=== PATIENT | male | born 1950 | race Caucasian/White ===

== ENCOUNTER 2019-05-25 00:53 | Inpatient (IN) | payer BC ==
[2019-05-25 01:39] LABS: #Basophils 0.1 thou/uL (0.0-0.2); #Eosinphils 0.1 thou/uL (0.0-0.7); #Lymphocytes 1.4 thou/uL (1.20-3.40); #Monocytes 1.1 thou/uL (0.11-0.59); #Neutrophils 8.1 thou/uL (1.40-6.50); %Basophils 0.6 % (0.0-1.0); %Eosinophils 0.6 % (0.0-10.0); %Lymphocytes 13.2 % (21.0-51.0); %Monocytes 10.1 % (0.0-10.0); %Neutrophils 75.5 % (42.0-75.0); Hemoglobin 14.6 g/dL (14.0-18.0); Mean Corpuscular HGB CONC 35.3 g/dL (32.0-36.0); Mean Corpuscular Hemoglobin 33.4 pg (27.0-31.0); Mean Corpuscular Volume 94.5 fL (78.0-98.0); Mean Platelet Volume 8.6 fL (7.4-10.4); Platelet Count 197 thou/uL (130-400); RBC Distribution Width 11.7 % (11.5-14.5); Red Blood Cell (RBC) Count 4.37 mill/uL (4.70-6.10); White Blood Cell (WBC) Count 10.7 thou/uL (4.8-10.8)
[2019-05-25 02:03] LABS: ALT (SGPT) 169 U/L (8-55); AST (SGOT) 172 U/L (5-34); Albumin 4.3 g/dL (3.4-4.8); Alcohol Less than 10 mg/dL (Less than 10); Alkaline Phosphatase 69 U/L (40-150); Anion Gap 14 mmol/L (10-20); BUN (Urea Nitrogen) 22 mg/dL (8.4-25.7); Bilirubin, Total 1.1 mg/dL (0.2-1.2); CK (CPK) 398 U/L (30-200); Calc. Creatinine Clearance 0 mL/min (70-130); Calcium 9.2 mg/dL (7.8-10.44); Carbon Dioxide 21 mmol/L (23-31); Chloride 106 mmol/L (98-107); Estimated GFR-MDRD 73; Globulin 2.5 g/dL (2.4-3.5); Glucose 192 mg/dL (80-115); Potassium 3.4 mmol/L (3.5-5.1); Protein, Total 6.8 g/dL (5.8-8.1); Sodium 138 mmol/L (136-145)
[2019-05-25 02:24] LABS: CKMB 6.3 ng/mL (0-6.6)
[2019-05-25 04:47] LABS: Troponin I 0.135 ng/mL (< 0.028)
[2019-05-25] MEDS ORDERED: Aspirin 325 MG TAB ONE (05:02)
[2019-05-25 07:13] LABS: Troponin I 0.259 ng/mL (< 0.028)
[2019-05-25 07:31] VITALS: BMI 34.9
--- NOTE | 2019-05-25 08:03 | RAD ---
EXAM: Portable chest PROVIDED CLINICAL HISTORY: Shortness of breath COMPARISON: None FINDINGS: Cardiac and mediastinal silhouette is within normal limits. No focal consolidation, pleural fluid or pneumothorax evident. IMPRESSION: No evidence for an acute cardiopulmonary process.
[2019-05-25 10:28] LABS: Troponin I 0.213 ng/mL (< 0.028)
[2019-05-25] MEDS ORDERED: Ondansetron ODT 4 MG TAB PO PRN (10:57)
[2019-05-25] MEDS ORDERED: Ondansetron PF 4 MG/2 ML Vial IVP PRN (10:57)
[2019-05-25] MEDS ORDERED: Dextrose 5% in Water 1,000 ML IV PRN (10:57)
[2019-05-25] MEDS ORDERED: HumaLOG 300 UNITS/3 ML VIAL SC PRN ×2 (10:57)
[2019-05-25] MEDS ORDERED: Dextrose 50% Abboject 50 ML SYRINGE SLOW IVP PRN (10:57)
[2019-05-25] MEDS ORDERED: Furosemide 20 MG TAB PO SCH (11:00)
[2019-05-25 12:39] LABS: #Eosinphils 0.1 thou/uL (0.0-0.7); #Lymphocytes 1.7 thou/uL (1.20-3.40); #Monocytes 0.8 thou/uL (0.11-0.59); #Neutrophils 4.3 thou/uL (1.40-6.50); %Basophils 0.4 % (0.0-1.0); %Eosinophils 1.9 % (0.0-10.0); %Lymphocytes 24.6 % (21.0-51.0); %Monocytes 11.2 % (0.0-10.0); %Neutrophils 61.9 % (42.0-75.0); Hemoglobin 13.8 g/dL (14.0-18.0); Mean Corpuscular HGB CONC 35.3 g/dL (32.0-36.0); Mean Corpuscular Hemoglobin 33.4 pg (27.0-31.0); Mean Corpuscular Volume 94.6 fL (78.0-98.0); Mean Platelet Volume 8.5 fL (7.4-10.4); Platelet Count 187 thou/uL (130-400); RBC Distribution Width 11.7 % (11.5-14.5); Red Blood Cell (RBC) Count 4.12 mill/uL (4.70-6.10)
[2019-05-25 12:57] LABS: ALT (SGPT) 117 U/L (8-55); AST (SGOT) 76 U/L (5-34); Alkaline Phosphatase 59 U/L (40-150); Anion Gap 10 mmol/L (10-20); BUN (Urea Nitrogen) 15 mg/dL (8.4-25.7); Bilirubin, Total 1.4 mg/dL (0.2-1.2); Calc. Creatinine Clearance 156 mL/min (70-130); Calcium 8.6 mg/dL (7.8-10.44); Carbon Dioxide 25 mmol/L (23-31); Cardiac Risk 4.5 (Less than 4.5); Chloride 107 mmol/L (98-107); Cholesterol 179 mg/dl (< 200 Desired); Estimated GFR-MDRD Greater than 90; Globulin 2.1 g/dL (2.4-3.5); Glucose 148 mg/dL (80-115); HDL Cholesterol 40 mg/dL (>60 Neg Risk); LDL Cholesterol, Calculated 123 mg/dL; Magnesium 1.7 mg/dL (1.6-2.6); Potassium 3.5 mmol/L (3.5-5.1); Protein, Total 6.1 g/dL (5.8-8.1); Sodium 138 mmol/L (136-145); Triglycerides 79 mg/dL (Less than 150)
[2019-05-25 13:25] LABS: CKMB 5.9 ng/mL (0-6.6)
--- NOTE | 2019-05-25 15:56 | HP ---
PRIMARY CARE PHYSICIAN: Dr. Macias. CHIEF COMPLAINT: Shortness of breath, lightheadedness, and diaphoresis. HISTORY OF PRESENT ILLNESS: Mr. Cook is a 69-year-old male with past medical history of hypertension, hyperlipidemia, and diabetes mellitus type 2, who had presented to the ED late last night after he had a short episode of shortness of breath, diaphoresis, and feeling lightheaded when he was at the [facility]. He states that he was outside drinking beer all day and had stated that he drank about 7 beers prior to the symptoms starting. Once he arrived to the ED, it was found that the patient be hypertensive and slightly tachycardic, D-dimer was found to be 0.52; however, there was a lower suspicion for PE at that time. His troponin was found to be elevated at 0.135, which had trended up to 0.259 and then back down to 0.177. His CK-MB was found to be normal at 5.9, and his liver enzymes elevated at 172 AST and 169 ALT, which these two trended down to 76 and 117 respectively. The patient was thought to be quite dehydrated. Therefore, he was treated with IV fluid hydration and was given aspirin in the ED. He states that since then his symptoms resolved, and he denies any fever, chills, any headache, blurred vision, dizziness, chest pain, palpitations, shortness of breath, abdominal pain, nausea, or vomiting. He had then stayed in a normal sinus rhythm on the monitor. REVIEW OF SYSTEMS: All other systems reviewed and found to be negative unless mentioned in the HPI. PAST MEDICAL HISTORY: Hypertension, hyperlipidemia, and diabetes mellitus type 2. PAST SURGICAL HISTORY: Right knee surgery. PSYCHIATRIC HISTORY: None. SOCIAL HISTORY: The patient drinks socially, which is quite rarely and denies any tobacco or illicit drug use. KNOWN ALLERGIES: No known drug allergies. CURRENT HOME MEDICATIONS: 1. Metformin 1000 mg p.o. b.i.d. 2. Pravastatin 20 mg oral q.p.m. 3. Januvia 100 mg p.o. daily. 4. CoQ10 30 mg p.o. daily. 5. Furosemide 20 mg oral every 48 hours. 6. Hydrochlorothiazide 25 mg p.o. daily. 7. Lisinopril 20 mg oral daily. 8. Metoprolol 100 mg oral daily. PHYSICAL EXAMINATION: VITAL SIGNS: Blood pressure 154/86, pulse 79, respirations 20, temperature 97.5, and O2 saturation 95% on room air. GENERAL: The patient is awake, alert, and oriented x3. He is currently lying comfortably in bed and in no acute distress. His family is at bedside. HEENT: Atraumatic and normocephalic. Pupils are round and reactive to light. Extraocular muscles intact. Moist mucous membranes noted. NECK: Soft and supple. Trachea midline. CARDIOVASCULAR: Positive S1 and S2. Regular rate and rhythm. No murmur auscultated. RESPIRATORY: Clear to auscultation bilaterally. No wheezes, rales, or rhonchi. ABDOMEN: Soft, nontender. Bowel sounds present. EXTREMITIES: Moves all extremities equal. Pedal and radial pulses 2+ bilaterally. No edema noted. NEUROLOGIC: Cranial nerves 2 through 12 grossly intact. No focal deficits noted. Speech intact and normal. Gait not assessed. SKIN: Warm, dry, and intact. No rashes. No ulceration noted. PSYCHIATRIC: Good mood and affect. LABORATORY DATA: WBC 7.0, RBC 4.12, hemoglobin 13.8, and platelets 187. Sodium 138, potassium 3.5, anion gap 10, BUN 15, creatinine 0.75, estimated GFR greater than 90, glucose 148, AST trended down to 76, ALT trended down to 117. Troponin 0.135, 0.259, 0.213, and 0.137. BNP 38.8, triglyceride 79, cholesterol 179, LDL 123, HDL 40. TSH 0.6365. Plasma alcohol less than 10. DIAGNOSTIC IMAGING: Portable chest x-ray showed no evidence of acute cardiopulmonary process. ASSESSMENT AND PLAN: 1. Myocardial infarction, type 2. The patient's cardiac enzymes were found to be in an indeterminate range and trended up to 0.259; however, it is currently trending down to 0.177. Consult to Dr. Garcia was placed, and an echocardiogram was ordered to assess his EF. The patient is currently asymptomatic at this time. He will be monitored on telemetry for now, and blood pressure and other vital signs will be monitored, and we will await for further recommendations per Cardiology. 2. Hypertension. Continue home regimen. Monitor blood pressure and other vital signs closely. 3. Hyperlipidemia. Continue home statin. 4. Diabetes mellitus, type 2. Continue with the insulin sliding scale with frequent Accu-Cheks. 5. Transaminitis. This is improved, status post IV fluid hydration. 6. Deep venous thrombosis and gastrointestinal prophylaxis. 7. Code status, full code. DISPOSITION: Pending further workup and clinical findings. Job ID: [id number]
[2019-05-25] MEDS ORDERED: Communication Order-Pharmacy FS SCH (18:30)
[2019-05-25] MEDS ORDERED: Sodium Chloride 0.9% (PF) 10 ML VIAL FS PRN (21:07)
[2019-05-25] MEDS ORDERED: Calcium Carbonate 500 MG ChewTAB PO PRN (21:08)
[2019-05-25] MEDS ORDERED: Pantoprazole 40 MG VIAL IVP SCH (21:15)
[2019-05-25] MEDS ORDERED: Calcium Carbonate 500 MG ChewTAB PO SCH (21:15)
[2019-05-25] MEDS: Famotidine 20 MG TAB PO SCH (22:04)
--- NOTE | 2019-05-25 22:08 | CON ---
DATE OF CONSULTATION: 05/25/2019 INDICATION FOR CONSULTATION: A 69-year-old patient with a history of nonobstructive coronary artery disease by cardiac catheterization in 2016 was out yesterday [place] a [place] in [place] believe, he had about 6 or 7 beers to drink, it was hot. He sat down to have something to eat and then he felt very lightheaded and dizzy and became very diaphoretic. He denied any chest pain, but does have a history of diabetes. He takes several medications for his diabetes. Since he did not feel quite right he presented to the emergency room at which time his enzymes were noted to be slightly elevated. His troponin I was 0.259. It is now continuing to trend downwards, now at 0.177 and he has had no chest pain. He has been doing much better, but due to the fact that he does have a history of coronary artery disease in the past, which was noted by cardiac catheterization by Dr. Dupont in 2016 at which time he was noted to have some mild calcifications in the left main with some plaque, but no obstructive stenosis. The left anterior descending artery had a 30% mid stenosis with some plaque and the left circumflex had no significant flow limiting disease. Right coronary artery was dominant vessel and had about a 30% proximal stenosis in the mid segment. His ejection fraction at that time was about 50% to 55%. He underwent an echocardiogram today and ejection fraction is now about 40% to 45% The inferior wall appears to be hypokinetic. PAST MEDICAL HISTORY: Significant for hypertension, dyslipidemia, diabetes type 2. He has had right knee surgery. He had a prostatectomy due to prostate cancer. He has had a cardiac catheterization, was found to have mild coronary artery disease. SOCIAL HISTORY: He drinks socially, but drinks as many as 6 or 7 beers a day. Obviously, he stopped smoking about 20 years ago. He is . He has children, who are alive and well. ALLERGIES: HE HAS NO KNOWN DRUG ALLERGIES. MEDICATIONS: Include metoprolol 100 mg b.i.d., lisinopril 20 mg a day, hydrochlorothiazide 25 mg a day, Lasix 20 mg every other day. He also takes CoQ10 as well as Januvia, pravastatin 20 mg a day and metformin 1000 mg b.i.d. REVIEW OF SYSTEMS: A 12-point review of systems unremarkable except for what was noted in the history of present illness. PHYSICAL EXAMINATION: GENERAL: Reveals a well-developed, well-nourished, obese gentleman who is in no acute distress at this time. He is alert. He is oriented. VITAL SIGNS: His vital signs show a blood pressure of 154/86, heart rate is 79 and regular, respiratory rate is 20. He is afebrile, O2 saturation 95%. HEENT: Shows head to be normocephalic and atraumatic. NECK: Carotid pulses are present. There were no bruits. CHEST: Clear to auscultation without rales, rhonchi, or wheezing. CARDIOVASCULAR: Reveals a regular rate and rhythm. I do not hear any significant murmurs, heaves, thrills, bruits, or rubs. ABDOMEN: Morbid obesity. Positive bowel sounds are present. No organomegaly or masses are noted. No tenderness. EXTREMITIES: Show no clubbing, cyanosis, or edema. Pedal pulses are present. NEUROLOGIC: He appears to be fully intact with normal strength and normal tone. SKIN: Warm and dry. DIAGNOSTIC STUDIES: EKG showed a normal sinus rhythm with no acute changes. He did have occasional PVCs, but no acute ST-segment changes were noted otherwise. LABORATORY DATA: Shows a sodium of 138, potassium was 3.5, BUN was 15 with a creatinine of 0.175, blood sugar was 148, and cardiac enzymes are as noted above. His hematology shows a WBC of 7.0, hemoglobin 13.8, hematocrit 38.9, and platelet count was 187,000. IMPRESSION: 1. Probable type 2 myocardial infarction with perhaps possibly demand ischemia associated with being in the heat and drinking alcohol, but the patient does have a history of mild coronary artery disease and diabetes and with his history of feeling lightheaded with diaphoresis, increased diaphoresis, more so than he would expect, then he most likely would best be benefitted by undergoing a cardiac catheterization to fully define his coronary anatomy. We will keep him n.p.o. and discuss his case with Dr. Dupont who most likely will proceed with cardiac catheterization tomorrow. 2. Hypertension. We will need to readjust his medications to ensure that his blood pressure remains stable. 3. Hypercholesterolemia. He will continue his medications. 4. Type 2 diabetes. His will be dealt with via the Primary Care Service. Job ID: [id number] [facility]
[2019-05-26 05:35] LABS: #Basophils 0.1 thou/uL (0.0-0.2); #Eosinphils 0.2 thou/uL (0.0-0.7); #Monocytes 0.8 thou/uL (0.11-0.59); #Neutrophils 3.3 thou/uL (1.40-6.50); %Basophils 1.1 % (0.0-1.0); %Eosinophils 2.9 % (0.0-10.0); %Lymphocytes 31.5 % (21.0-51.0); %Monocytes 12.6 % (0.0-10.0); Hemoglobin 14.2 g/dL (14.0-18.0); Mean Corpuscular HGB CONC 34.7 g/dL (32.0-36.0); Mean Corpuscular Hemoglobin 32.7 pg (27.0-31.0); Mean Corpuscular Volume 94.4 fL (78.0-98.0); Mean Platelet Volume 8.9 fL (7.4-10.4); Platelet Count 194 thou/uL (130-400); RBC Distribution Width 11.8 % (11.5-14.5); Red Blood Cell (RBC) Count 4.34 mill/uL (4.70-6.10); White Blood Cell (WBC) Count 6.3 thou/uL (4.8-10.8)
[2019-05-26 05:52] LABS: Anion Gap 14 mmol/L (10-20); BUN (Urea Nitrogen) 10 mg/dL (8.4-25.7); Calc. Creatinine Clearance 159 mL/min (70-130); Calcium 8.5 mg/dL (7.8-10.44); Carbon Dioxide 24 mmol/L (23-31); Chloride 106 mmol/L (98-107); Estimated GFR-MDRD Greater than 90; Glucose 140 mg/dL (80-115); Potassium 3.5 mmol/L (3.5-5.1); Sodium 140 mmol/L (136-145)
[2019-05-26] MEDS: Famotidine 20 MG TAB PO SCH ×2 (06:03→20:35)
[2019-05-26] MEDS: Lisinopril 20 MG TAB PO SCH (06:03)
[2019-05-26] MEDS ORDERED: Pantoprazole 40 MG VIAL IVP SCH (09:00)
[2019-05-26] MEDS ORDERED: Hydrochlorothiazide 25 MG TAB PO SCH (09:00)
[2019-05-26] MEDS ORDERED: Enoxaparin Sodium 40 MG/0.4 ML SYRINGE SC SCH (09:00)
--- NOTE | 2019-05-26 09:47 | PDOC.HOSPP ---
- Subjective Encounter Date: 05/26/19 Encounter Time: 09:43 Subjective: feels well now - Objective Vital Signs & Weight: Vital Signs (12 hours) Temp Pulse Resp BP BP Pulse Ox 05/26/19 07:09 97.8 F 72 15 158/95 H 94 L 05/26/19 06:03 132/91 H 05/26/19 04:48 97.9 F 74 16 169/98 H 96 05/25/19 23:37 76 149/82 H 05/25/19 22:01 98.4 F 72 20 159/87 H 94 L Weight Weight 248 lb 11.2 oz I&O: 05/25/19 05/26/19 05/27/19 06:59 06:59 06:59 Intake Total 400 Output Total 1440 Balance -1040 Result Diagrams: 05/26/19 04:25 05/26/19 04:25 Additional Labs: Accuchecks 05/26/19 05/25/19 05/25/19 05:35 20:48 16:35 POC Glucose 151 H 157 H 129 H Hospitalist ROS - Medication Medications: Active Medications Generic Name Dose Route Start Last Admin Trade Name Freq PRN Reason Stop Dose Admin Famotidine 20 mg 05/25/19 21:00 05/26/19 06:03 Pepcid PO 20 mg BID BEENA Administration Furosemide 20 mg 05/25/19 11:00 05/25/19 11:39 Lasix PO 20 mg Q48H BEENA Administration Hydrochlorothiazide 25 mg 05/26/19 09:00 05/26/19 06:03 Hydrochlorothiazide PO 25 mg QAM BEENA Administration Lisinopril 20 mg 05/26/19 09:00 05/26/19 06:03 Zestril PO 20 mg QAM BEENA Administration Metoprolol Succinate 100 mg 05/26/19 09:00 05/26/19 06:04 Toprol Xl PO 100 mg DAILY BEENA Administration - Exam Neck: no JVD Heart: RRR Respiratory: CTAB, no wheezes Gastrointestinal: soft, normal bowel sounds Extremities: no edema Hosp A/P (1) Myocardial infarction type 2 Code(s): I21.A1 - MYOCARDIAL INFARCTION TYPE 2 Status: Acute (2) HTN (hypertension) Code(s): I10 - ESSENTIAL (PRIMARY) HYPERTENSION Status: Chronic Qualifiers: Hypertension type: essential hypertension Qualified Code(s): I10 - Essential (primary) hypertension (3) DM type 2 (diabetes mellitus, type 2) Status: Acute Qualifiers: 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 no reversibile ischemia, LVEF about 45% GB US- cholelithiasis
--- NOTE | 2019-05-26 11:59 | ULT ---
RIGHT UPPER QUADRANT ULTRASOUND CLINICAL HISTORY: Elevated LFTs and right upper quadrant pain. COMPARISON: None FINDINGS: Liver:There is diffuse fatty infiltration. No focal masses identified. Bile ducts: No intrahepatic or extrahepatic biliary dilation.; common bile duct: 0.4cm. Gallbladder: There are small stones within the gallbladder. Floyd's sign:None Main portal vein:Patent with hepatopedal flow. Pancreas: Largely obscured. Right kidney: No pelvicalyceal dilatation. Right kidney measures 11.6 x 5.7 x 6.4 cm. Additional findings: None. IMPRESSION: 1. Fatty liver. 2. Cholelithiasis
--- NOTE | 2019-05-26 14:19 | NM ---
Radionucleotide stress and rest myocardial perfusion scan with CT attenuation correction and SPECT im aging Left ventricular wall motion evaluation and ejection fraction HISTORY: Chest pain. FINDINGS: Heterogeneous uptake of radiotracer throughout the left ventricular myocardium. Thinning of the inferior and lateral bowling. Small fixed lateral wall. No reversibility. QGS analysis of gated SPECT images shows no focal wall motion abnormalities. Diffuse hypokinesis. Eje ction fraction calculated at 46%. IMPRESSION: No evidence of ischemia. Area of scar at the inferior and lateral wall. Slightly depressed ejection fraction of 46% without focal wall motion abnormality.
[2019-05-26] MEDS ORDERED: Potassium Chloride 20 MEQ TAB PO SCH (17:00)
[2019-05-26] MEDS ORDERED: Communication Order-Pharmacy FS SCH (18:15)
[2019-05-26] MEDS ORDERED: Aspirin 81 mg Enteric Coated Tablet PO SCH (18:15)
--- NOTE | 2019-05-26 18:31 | PRG ---
DATE OF SERVICE: 05/26/2019 SUBJECTIVE: Mr. Cook is feeling fine. No complaints. No chest pain or pressure. OBJECTIVE: VITAL SIGNS: Blood pressure 135/85, pulse 72 and regular. LUNGS: Clear. CARDIAC: Normal S1. Normal S2. DIAGNOSTIC STUDIES: Stress test showed a fixed inferior defect with no ischemia, with some depressed left ventricular function. ASSESSMENT: 1. Status post slight increase in troponin level. I suspect this is related to dehydration and overheating. Peak troponin was 0.259. The patient had been on the heat, drank quite a bit of beer, and had a near syncopal episode, sounds like a dehydration. 2. Mild coronary artery disease, previous catheterization. 3. Hypercholesterolemia, not well controlled. 4. Stress test indicating fixed defect of the inferior wall, this could be diaphragmatic-attenuation artifact. PLAN: Proceed to cardiac catheterization tomorrow. Discussed risks. Discussed stroke, heart attack, iodine allergy, loss of blood supply to leg or kidney, stent thrombosis, stent restenosis. He understands and wishes to proceed. He is actually not allergic to aspirin. Aspirin caused some stomach irritation in the past. We will go ahead and start him on aspirin 81 mg a day [employer]. Job ID: [id number]
[2019-05-27] MEDS ORDERED: CEFAZOLIN 2 GM in Premix Bag 1 BAG IVPB SCH (03:45)
[2019-05-27 04:13] LABS: #Eosinphils 0.2 thou/uL (0.0-0.7); #Lymphocytes 2.4 thou/uL (1.20-3.40); #Neutrophils 3.5 thou/uL (1.40-6.50); %Basophils 0.3 % (0.0-1.0); %Eosinophils 2.8 % (0.0-10.0); %Lymphocytes 34.1 % (21.0-51.0); %Monocytes 13.7 % (0.0-10.0); %Neutrophils 49.1 % (42.0-75.0); Hemoglobin 14.9 g/dL (14.0-18.0); Mean Corpuscular HGB CONC 34.4 g/dL (32.0-36.0); Mean Corpuscular Hemoglobin 31.9 pg (27.0-31.0); Mean Corpuscular Volume 92.8 fL (78.0-98.0); Mean Platelet Volume 8.6 fL (7.4-10.4); Platelet Count 179 thou/uL (130-400); RBC Distribution Width 11.8 % (11.5-14.5); Red Blood Cell (RBC) Count 4.67 mill/uL (4.70-6.10)
[2019-05-27 04:29] LABS: ALT (SGPT) 86 U/L (8-55); AST (SGOT) 36 U/L (5-34); Albumin 4.1 g/dL (3.4-4.8); Alkaline Phosphatase 55 U/L (40-150); Anion Gap 12 mmol/L (10-20); BUN (Urea Nitrogen) 10 mg/dL (8.4-25.7); Bilirubin, Total 1.5 mg/dL (0.2-1.2); Calc. Creatinine Clearance 152 mL/min (70-130); Calcium 8.9 mg/dL (7.8-10.44); Carbon Dioxide 22 mmol/L (23-31); Chloride 106 mmol/L (98-107); Estimated GFR-MDRD Greater than 90; Globulin 2.7 g/dL (2.4-3.5); Glucose 149 mg/dL (80-115); Potassium 3.7 mmol/L (3.5-5.1); Protein, Total 6.8 g/dL (5.8-8.1); Sodium 136 mmol/L (136-145)
[2019-05-27] MEDS ORDERED: Sodium Chloride 0.9% 1,000 ML IV SCH (05:00)
[2019-05-27] MEDS: Famotidine 20 MG TAB PO SCH (05:13)
[2019-05-27] MEDS: Lisinopril 20 MG TAB PO SCH (05:15)
[2019-05-27] MEDS ORDERED: Diazepam 5 MG TAB PO SCH (06:00)
[2019-05-27] MEDS ORDERED: Midazolam HCl 2 mg/2 ml Vial ONE (07:47)
[2019-05-27] MEDS ORDERED: Fentanyl 100 MCG/2 ML VIAL ONE (07:47)
[2019-05-27] MEDS ORDERED: Metoprolol Tartrate 5 MG/5 ML VIAL ONE (08:15)
[2019-05-27] MEDS ORDERED: Acetaminophen/Codeine 30-300mg Tablet PO PRN (08:41)
[2019-05-27] MEDS ORDERED: Sodium Chloride 0.9% 200 ML IV PRN (08:41)
[2019-05-27] MEDS ORDERED: Nitroglycerin 0.4 MG TAB (25 Tab Bottle) SL PRN (08:41)
[2019-05-27] MEDS ORDERED: Iopamidol 370 76% 100 ML VIAL ONE (08:44)
[2019-05-27] MEDS ORDERED: Aspirin 81 mg Enteric Coated Tablet PO SCH (09:00)
--- NOTE | 2019-05-27 13:07 | PDOC.HOSPP ---
- Subjective Encounter Date: 05/27/19 Encounter Time: 13:05 Subjective: no chest pain, sob - Objective Vital Signs & Weight: Vital Signs (12 hours) Temp Pulse Resp BP BP Pulse Ox 05/27/19 11:05 97.9 F 58 L 18 149/75 H 94 L 05/27/19 08:50 97.9 F 59 L 14 138/80 94 L 05/27/19 07:00 98.0 F 68 16 139/82 97 05/27/19 05:15 134/85 05/27/19 04:00 97.4 F L 63 20 134/85 96 Weight Weight 248 lb 11.2 oz I&O: 05/26/19 05/27/19 05/28/19 06:59 06:59 06:59 Intake Total 400 1020 Output Total 1440 1700 Balance -1040 -680 Result Diagrams: 05/27/19 04:01 05/27/19 04:01 Additional Labs: Accuchecks 05/27/19 05/27/19 05/26/19 11:16 05:42 20:28 POC Glucose 147 H 182 H 178 H 05/26/19 16:30 POC Glucose 165 H Hospitalist ROS - Medication Medications: Active Medications Generic Name Dose Route Start Last Admin Trade Name Freq PRN Reason Stop Dose Admin Aspirin 81 mg 05/27/19 09:00 05/27/19 05:12 Ecotrin PO 81 mg DAILY BEENA Administration Famotidine 20 mg 05/25/19 21:00 05/27/19 05:13 Pepcid PO 20 mg BID BEENA Administration Lisinopril 20 mg 05/26/19 09:00 05/27/19 05:15 Zestril PO 20 mg QAM BEENA Administration Metoprolol Succinate 100 mg 05/26/19 09:00 05/27/19 05:13 Toprol Xl PO 100 mg DAILY BEENA Administration - Exam General Appearance: awake alert Neck: no JVD Heart: RRR, no murmur Respiratory: CTAB Gastrointestinal: soft, non-tender, normal bowel sounds Extremities: no edema Hosp A/P (1) Myocardial infarction type 2 Code(s): I21.A1 - MYOCARDIAL INFARCTION TYPE 2 Status: Acute (2) HTN (hypertension) Code(s): I10 - ESSENTIAL (PRIMARY) HYPERTENSION Status: Chronic Qualifiers: Hypertension type: essential hypertension Qualified Code(s): I10 - Essential (primary) hypertension (3) DM type 2 (diabetes mellitus, type 2) Status: Acute Qualifiers: 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
[2019-05-27 15:18] VITALS: BP 145/95; TEMP 97
--- NOTE | 2019-05-27 15:50 | PRG ---
DATE OF SERVICE: 05/27/2019 SUBJECTIVE: Mr. Cook is doing well. He is found to have a cardiomyopathy, today, the ejection fraction is 40%. He has nonobstructive coronary artery disease. He is planning going home on metoprolol 100 mg a day, lisinopril 20 mg a day, aspirin 81 mg a day, Crestor 20 mg a day, as an outpatient, we plan on changing him from lisinopril to Entresto and ultimately changing him from metoprolol to carvedilol. He is to avoid overheating and dehydration. Job ID: [id number]
--- NOTE | 2019-05-27 16:49 | DIS ---
DATE OF ADMISSION: 05/25/2019 DATE OF DISCHARGE: 05/27/2019 Transfer of care. PRIMARY CARE PROVIDER: Dr. Ramesh Macias. DISPOSITION: Discharged to home. FINAL DIAGNOSES: 1. Myocardial infarction, type 2. 2. Hypertension. 3. Diabetes mellitus, type 2. 4. Cholelithiasis without cholecystitis. DISCHARGE MEDICATIONS: 1. Coenzyme Q10 30 mg a day. 2. Toprol-XL 100 mg a day. 3. Prinivil 20 mg a day. 4. Hydrochlorothiazide 25 mg a day. 5. Januvia 100 mg a day. 6. Metformin 1000 mg twice a day. 7. Crestor 20 mg a day. 8. Aspirin 81 mg a day. ALLERGIES: TO YELLOW DYE, NSAIDS. CODE STATUS: Full. PENDING AT THE TIME OF DISCHARGE: Nothing. DIET: Diabetic. HOSPITAL COURSE: The patient admitted to the Hospitalist Service to [facility] with shortness of breath, lightheadedness, and diaphoresis. He was found to have elevated troponins, mildly elevated AST and ALT. Chest x-ray was unrevealing. Cardiology was consulted, Dr. Jhon Garcia saw the patient in consultation on 05/25. Agreed with type 2 myocardial infarction versus demand ischemia. Has a history of mild coronary artery disease and diabetes. On 05/26/2019, he had a nuclear medicine stress test revealed 46% EF with inferior lateral scar. Echocardiogram revealed an inferior hypokinesis with 40% to 45% EF. The patient underwent a cardiac cath, he had approximately 40% EF. He had mild coronary artery disease with a 40% lesion. He is currently doing well, stable. He is being discharged for followup in [address] Macias, follow up in [address] Dupont. Potential concerns are cholelithiasis with mildly elevated transaminases, could this have precipitated his choking sensation and type 2 myocardial infarction. The other thing is his sleeping was noted by the nurses to be consistent with obstructive sleep apnea. Consideration should be given to outpatient sleep study for possible sleep apnea and CPAP, and consideration for further evaluation of his gallbladder pending any return of similar symptoms. Job ID: [id number]
[2019-05-27] MEDS ORDERED: Rosuvastatin 20 MG TAB PO SCH (21:00)
[2019-05-28] MEDS ORDERED: Hydrochlorothiazide 25 MG TAB PO SCH (09:00)
== END 2019-05-27 16:50 | disposition home or self-care (01) | DRG 281 ==
LOC: ERS 00:53 → 2NO 05:26
PROVIDERS: ADMIT Hospitalist; ATTEND Hospitalist
PROC: 4A023N7 Measurement of Cardiac Sampling and Pressure, Left Heart, Percutaneous Approach (ICD-10-PCS; principal; 2019-05-27)
PROC: B2151ZZ Fluoroscopy of Left Heart using Low Osmolar Contrast (ICD-10-PCS; 2019-05-27)
PROC: B2111ZZ Fluoroscopy of Multiple Coronary Arteries using Low Osmolar Contrast (ICD-10-PCS; 2019-05-27)
DX: I21.A1 Myocardial infarction type 2 (principal); I42.9 Cardiomyopathy, unspecified; E11.9 Type 2 diabetes mellitus without complications; I10 Essential (primary) hypertension; E78.5 Hyperlipidemia, unspecified; E86.0 Dehydration; R74.0 Nonspecific elevation of levels of transaminase and lactic acid dehydrogenase [LDH]; I25.10 Atherosclerotic heart disease of native coronary artery without angina pectoris; E78.00 Pure hypercholesterolemia, unspecified; K80.20 Calculus of gallbladder without cholecystitis without obstruction; G47.33 Obstructive sleep apnea (adult) (pediatric); Z79.899 Other long term (current) drug therapy; Z88.8 Allergy status to other drugs, medicaments and biological substances; Z87.891 Personal history of nicotine dependence; Z90.79 Acquired absence of other genital organ(s); Z85.46 Personal history of malignant neoplasm of prostate; Z79.84 Long term (current) use of oral hypoglycemic drugs
CPT/HCPCS: 36415; 36416; 71045; 76705; 76942; 78452; 80048; 80053; 80061; 80307; 82550; 82553; 83735; 83880; 84443; 84484; 85025; 85379; 93005; 93017; 93306; 93458; 96360; 96361; 99152; A9500; C1769; J0153; J2250; J3010; Q9967

== ENCOUNTER 2021-03-12 18:55 | Emergency (ER) | payer BC ==
[2021-03-12] MEDS ORDERED: Lidocaine 1% PF 5 ML VIAL ONE (21:00)
[2021-03-12] MEDS ORDERED: Bupivacaine 0.5% 10 ML VIAL ONE (21:00)
[2021-03-12] MEDS ORDERED: Bacitracin 1 PK ONE (22:20)
[2021-03-12] MEDS ORDERED: Boostrix 0.5 ML (Tdap) VIAL ONE (22:20)
== END 2021-03-12 22:35 | disposition home or self-care (01) ==
LOC: ERS 18:55
DX: S61.217A Laceration without foreign body of left little finger without damage to nail, initial encounter (principal); E11.9 Type 2 diabetes mellitus without complications; I10 Essential (primary) hypertension; W23.0XXA Caught, crushed, jammed, or pinched between moving objects, initial encounter
CPT/HCPCS: 12002; 90471; 90715; J3490